=== PATIENT | male | born 1930 | race Caucasian/White ===

== ENCOUNTER 2017-03-27 02:14 | Inpatient (IN) | payer MEDICARE, BC ==
[~2017-03-27] VITALS: Ht 175.3 cm; Wt 80.6 kg
[2017-03-27 03:43] LABS: HEMATOCRIT 41.5 % (39.2-51.8); HEMOGLOBIN 13.6 g/dL (13.7-18.0); WHITE BLOOD COUNT 9.5 x10^3/uL (3.4-10)
[2017-03-27 03:55] LABS: BLOOD UREA NITROGEN 22 mg/dL (7-18)
[2017-03-27 04:02] LABS: IS PT STATUS REG ER OR PRE ER? YES
[2017-03-27] MEDS ORDERED: ONDANSETRON 2MG/ML, 2ML IVPush PRN ×2 (06:00→08:00)
[2017-03-27 07:45] VITALS: BP 163/67
[2017-03-27] MEDS ORDERED: ACETAMINOPHEN 325 MG TABLET PO PRN (08:00)
[2017-03-27] MEDS ORDERED: HYDROcodone/CHLORPHENIR ORAL SUSP PO PRN (08:00)
[2017-03-27] MEDS: FUROSEMIDE 40 MG/4 ML IV SCH ×2 (08:31→16:33)
[2017-03-27] MEDS: BENZONATATE 100 MG CAPSULE PO SCH ×3 (08:31→20:25)
[2017-03-27] MEDS: POTASSIUM CHLORIDE 20 MEQ TAB.ER.PRT PO SCH ×2 (08:31→16:33)
[2017-03-27] MEDS ORDERED: ASPI-496 PO (09:11)
[2017-03-27] MEDS ORDERED: LISI40TA PO (09:11)
[2017-03-27] MEDS ORDERED: CARV25TA PO (09:12)
[2017-03-27] MEDS ORDERED: FURO40TA6 PO (09:14)
[2017-03-27] MEDS ORDERED: CITA20TA9 PO (09:15)
[2017-03-27] MEDS ORDERED: PRED1TAB PO (09:16)
[2017-03-27] MEDS ORDERED: SIMV40TA3 PO (09:17)
[2017-03-27] MEDS ORDERED: TRAZ100T15 PO (09:18)
[2017-03-27 16:24] VITALS: BP 154/63
[2017-03-27 19:58] VITALS: BP 150/70
[2017-03-27] MEDS: GUAIFENESIN/DM 200-20MG, 10ML UDC PO PRN (20:26)
[2017-03-27] MEDS ORDERED: TRAZODONE 100MG TABLET PO PRN (21:00)
[2017-03-28 01:35] VITALS: BP 125/51
[2017-03-28 06:24] LABS: BLOOD UREA NITROGEN 18 mg/dL (7-18)
[2017-03-28 07:44] VITALS: BP 163/66
[2017-03-28] MEDS: BENZONATATE 100 MG CAPSULE PO SCH ×3 (08:34→20:00)
[2017-03-28] MEDS: POTASSIUM CHLORIDE 20 MEQ TAB.ER.PRT PO SCH ×2 (08:34→17:43)
[2017-03-28] MEDS: CITALOPRAM 20 MG TABLET PO SCH (08:36)
[2017-03-28] MEDS: ASPIRIN 81 MG TABLET EC PO SCH (08:53)
[2017-03-28] MEDS: CARVEDILOL 25 MG TABLET PO SCH ×2 (08:53→19:59)
[2017-03-28] MEDS: SPIRONOLACTONE 25 MG TABLET PO SCH (08:54)
[2017-03-28] MEDS ORDERED: CITALOPRAM 20 MG TABLET PO SCH (09:00)
[2017-03-28] MEDS ORDERED: FUROSEMIDE 20 MG TABLET PO SCH (09:00)
[2017-03-28] MEDS: LISINOPRIL 20 MG TABLET PO SCH (09:07)
[2017-03-28] MEDS ORDERED: FUROSEMIDE 40 MG/4 ML IV ONE (10:00)
[2017-03-28 12:50] VITALS: BP 135/72
[2017-03-28 19:30] VITALS: BP 137/67
[2017-03-28] MEDS: GUAIFENESIN/DM 200-20MG, 10ML UDC PO PRN (20:01)
[2017-03-28] MEDS ORDERED: SIMVASTATIN 40 MG TABLET PO SCH (21:00)
[2017-03-28] MEDS ORDERED: TRAZODONE 100MG TABLET PO SCH (21:00)
[2017-03-29 04:40] VITALS: BP 153/76
[2017-03-29 05:39] LABS: BLOOD UREA NITROGEN 26 mg/dL (7-18)
[2017-03-29] MEDS ORDERED: FUROSEMIDE 20 MG/2 ML IV ONE (08:30)
[2017-03-29] MEDS ORDERED: SPIR25TA PO (08:32)
[2017-03-29] MEDS ORDERED: FURO40TA6 PO (08:32)
[2017-03-29 08:45] VITALS: BP 119/69
[2017-03-29] MEDS: SPIRONOLACTONE 25 MG TABLET PO SCH (09:16)
[2017-03-29] MEDS: ASPIRIN 81 MG TABLET EC PO SCH (09:17)
[2017-03-29] MEDS: CITALOPRAM 20 MG TABLET PO SCH (09:17)
[2017-03-29] MEDS: CARVEDILOL 25 MG TABLET PO SCH (09:17)
[2017-03-29] MEDS: LISINOPRIL 20 MG TABLET PO SCH (09:17)
== END 2017-03-29 12:45 | disposition home or self-care (01) | DRG 292 ==
LOC: ED 05:08 → EDIP 05:59 → 5SO 07:31 → DCLOUNGE 03-29 12:13
PROVIDERS: ADMIT Hospitalist; ATTEND Hospitalist
DX: I50.43 Acute on chronic combined systolic (congestive) and diastolic (congestive) heart failure (principal); D68.69 Other thrombophilia; I27.20 Pulmonary hypertension, unspecified; I42.9 Cardiomyopathy, unspecified; E44.1 Mild protein-calorie malnutrition; F41.0 Panic disorder [episodic paroxysmal anxiety]; I08.0 Rheumatic disorders of both mitral and aortic valves; I48.2 Chronic atrial fibrillation; Z85.46 Personal history of malignant neoplasm of prostate; Z87.891 Personal history of nicotine dependence; Z95.0 Presence of cardiac pacemaker; F32.9 Major depressive disorder, single episode, unspecified; F41.9 Anxiety disorder, unspecified; Z68.26 Body mass index [BMI] 26.0-26.9, adult
CPT/HCPCS: 36415; 71010; 80048; 81003; 82040; 83735; 83880; 84484; 85025; 87324; 93005; 93306; 99285; J1940; J7512